=== PATIENT | male | born 1955 | race Caucasian/White ===

== ENCOUNTER 2024-01-10 09:33 | Outpatient (CLI) | payer BC, SELFPAY ==
--- NOTE | 2024-01-10 09:47 | ECG_ITS ---
Test Date: 2024-01-10 10:14:47 Measurements Intervals [place] Rate: 57 P: 41 PA: 150 QRS: 50 QRSD: 106 T: 67 QT: 400 QTc: 392 Interpretive Statements SINUS BRADYCARDIA PEAKED T WAVES- CONSIDER HYPERKALEMIA BASELINE ARTIFACT- I, II, III, AVR, AVL, AVF ABNORMAL ECG No previous ECG available for comparison Electronically Signed On 01-10-2024 10:52:41 ASSISTANT BUSINESS MANAGER by Kurt Nguyễn D.O.
[2024-01-10 10:22] LABS: Hemoglobin 13.7 g/dL (14.0-18.0); Mean Corpuscular HGB Conc 33.4 g/dl (32-36); Mean Corpuscular Hemoglobin 30.6 pg (26-34); Mean Corpuscular Volume 91.7 fl (80-100); Platelet Count Result 210 k/mm3 (150-375); Red Blood Count 4.47 M/mm3 (4.6-6.20); Red Cell Distribution Width 12.5 % (11.5-14.5); White Blood Count 5.4 K/mm3 (4.5-10.0)
[2024-01-10 10:24] LABS: Add Urine Microscopic? NO; Appearance Urine Clear (Clear); Bilirubin Urine Negative (Negative); Blood Urine Negative (Negative); Color Urine Yellow (Yellow); Glucose Urine UA Negative (Negative); Ketones Urine Negative (Negative); Leukocyte Esterase Ur Negative LEU/UL (Negative); Nitrate Urine Negative (Negative); Protein Urine Negative (Negative); Specific Grav Ur 1.009 (1.001-1.035); Urobilinogen Urine 0.2 mg/dL (<2.0); pH Urine 7.5 (5.0-9.0)
[2024-01-10 10:33] LABS: Prothrombin Time 13.6 Seconds (11.1-14.7)
[2024-01-10 10:34] LABS: Partial Thromboplastin Time 27.5 Seconds (22.3-36.8)
[2024-01-10 10:40] LABS: Anion Gap 6 mmol/L (4-12); Blood Urea Nitrogen 20 mg/dL (9-20); Calcium 9.1 mg/dL (8.4-10.2); Carbon Dioxide 29 mmol/L (22-30); Chloride 104 mmol/L (98-107); Estimated Glomerular Filt Rate > 60; Glucose 94 mg/dL (65-110); Potassium 4.4 mmol/L (3.4-5.0); Sodium 139 mmol/L (137-145)
== END 2024-01-10 09:34 | disposition home or self-care (01) ==
PROVIDERS: Visit Provider Neurological Surgery
DX: Z01.818 Encounter for other preprocedural examination (principal); M48.02 Spinal stenosis, cervical region; R94.31 Abnormal electrocardiogram [ECG] [EKG]
CPT/HCPCS: 36415; 80048; 81003; 85027; 85610; 85730; 86850; 86900; 86901; 93005

== ENCOUNTER 2024-01-16 00:31 | Day surgery (SDC) | payer BC, SELFPAY ==
--- NOTE | 2024-01-05 11:07 | PC.NURSE ---
Report to the Outpatient Waiting Room, entrance under the green pavilion located off [facility], at time 6:30 AM on date01/16/24 . Planned Procedure Time: _8:30 AM .? Time changes happen often and if your time is changed the preop area will call you the afternoon before. - You and your visitor will be asked to self-screen and do not enter if you have any COVID symptoms. Please call surgeon if you need to reschedule. - A mask is optional within the hospital at this time. Patients may have clear liquids (water, carbonated beverages, clear teas, apple juice) until 3 hours prior to surgery( 5:30 AM) with a maximum of 20 ounces. - No food from midnight until time of surgery and no smoking - Infants may have breast milk until 4 hours before surgery, formula 6 hours prior to surgery. - Children will be allowed to drink immediately following surgery.? If applicable, please bring a bottle or sippy cup to assist with drinking. Juice, water, soda, and popsicles are readily available.? For infants on formula, please bring formula the day of surgery.? Pacifiers are allowed. Take only the following medications with a SIP of water on the morning of surgery: ____NONE DO NOT STOP ANY OF YOUR OTHER PRESCRIPTION MEDICATIONS PRIOR TO SURGERY EXCEPT THE FOLLOWING Medications to discontinue per physician NONE Please no make-up, nail wolof, hairspray, perfume, deodorant, or body powder the day of surgery.? No jewelry (including any body piercings) or valuables the day of surgery, leave them at home.? Please take a shower or bath the night before, or the morning of, surgery with an antibacterial soap.? Wear comfortable, loose fitting clothing.? Children are encouraged to wear pajamas. - Jewelry must be removed prior to entering the operating room.? Rings and piercings that are not removed may be cut off. - The hospital will not accept responsibility for valuables.? - Please leave all valuables, including medications, at home the day of surgery. If you are going home after surgery, a licensed fork truck driver must drive you home.? - NO public transportation without another adult if you receive anesthesia. - We recommend that an adult stay with you for 24 hours following discharge. - We also recommend that you do not drive, make important decision, drink alcoholic beverages, or take any drugs that were not prescribed by your health care provider for at least 24 hours after your discharge time. Follow any additional instructions given to you from your surgeon. Telephone instructions given to _PATIENT and asked if any additional questions and then verbalized understanding. Patient advised to call surgeon office or pre surgery nurse liaison [phone] if any additional questions.
[2024-01-05 11:19] VITALS: BMI 19.3
[2024-01-16] VITALS (15 sets, daily range): BP systolic 109–144; BP diastolic 51–84; PULSE 56–90; RESP 16–20; TEMP 36–37.3; O2SAT 95–100
--- NOTE | ~2024-01-16 | XR_ITS ---
EXAMINATION: XR fluoroscopy no charge DATE: 01/16/2024 10:27 INDICATION: C4 C6 laminectomy and lateral mass fusion TECHNIQUE: 2 fluoroscopic images of the cervical spine were obtained during procedure performed by Dr Jackie Mercado. Radiologist was not present for the imaging or procedure. The amount of fluoroscopy time used during this procedure was 0.1 minutes. COMPARISON: None. FINDINGS: The lateral images of the cervical spine demonstrate severe spondylosis at C3-C6. Surgical instrument ation projects in partial obscures the posterior elements of C4-C5. Final image demonstrates placemen t of lateral mass screws at C4, C5 and C6. IMPRESSION: 1. Fluoroscopy utilized during neurosurgical procedure at the lower cervical spine. See procedure not e for further detail. Reviewed, dictated and finalized at location B. NER IMPRESSION: 1. Fluoroscopy utilized during neurosurgical procedure at the lower cervical sp ine. See procedure note for further detail.
[2024-01-16] MEDS: LACTATED RINGERS 1,000 ML 30 ML IV CONT ×2 (07:05→10:46)
--- NOTE | 2024-01-16 07:51 | P.HP_ITS ---
H&P: HPI History of Present Illness Date/Time: 01/16/24 07:51 Chief Complaint: Cervical myelopathy Narrative: Martin 68-year-old gentleman who has a fairly physical job and notices increased pain in his neck. He is a milk truck driver. Since November of last year, or so, he has had pain that radiates from his neck down his left upper extremity to the 1st and 2nd digit mainly but also the 3rd and 4th digit at the tips. He notices the numbness and tingling there as well as discomfort. He notices difficulty using the hand because of these issues. He does not note any of these issues on the right. He does not notice any difficulty with his balance. He has been walking without difficulty. He does have some low back and right knee issues. He does not note specific muscle group weakness but does have dermatomal numbness as described above. Again, activity seems to make things worse and rest seems to improve his problems. He has participated in health care analyst and physical therapy without permanent benefit. Review of Systems Review of Systems: All systems reviewed & are unremarkable except as noted in HPI and below Denies chills, Denies fever, Denies weight gain and Denies weight loss Eyes Denies change in vision and Denies diplopia ENT Denies disequilibrium Card Denies chest pain and Denies dyspnea Resp Denies cough and Denies dyspnea GI Denies abdominal pain, Denies change in bowel habits, Denies fecal incontinence and Denies vomiting Denies hematuria, Denies oliguria, Denies difficulty urinating, Denies dysuria, Denies urinary frequency, Denies urinary hesitancy, Denies urinary incontinence and Denies urinary urgency Musc Reports as per HPI Skin/ Breast Reports system reviewed and no additional complaints, except as documented Neuro Reports as per HPIPsych Reports no additional complaints, Denies depression and Denies hopelessness Endo Reports no additional complaints and Denies polyuria Mulugeta/ Lymph Reports no additional complaints Aller/ Immun Reports no additional complaints PMFSH Surgical History Surgical History (Updated 11/14/23 @ 10:32 by Lilly Shannon CMA) History of fusion of talotibial joint and subtalar joint Family History Family History (Updated 11/14/23 @ 10:34 by Lilly Shannon CMA) Mother History of cancer Father History of cancer Sibling History of cancer Social History Social History (Updated 11/14/23 @ 10:42 by Lilly Shannon GENERAL MANAGER ROAD [employer]ODUCTION) Smoking packs per day: 2 Smoking cigarettes per day: 40.0 Years smoked: 20 Smoking pack-years: 40.00 Smoking status: Former smoker Tobacco type: cigarettes Smoking end date: 03/06/08 Alcohol intake: former Substance use: never Substance use type: does not use Living arrangements: with family Spiritual care concerns: No Meds Home Medications and Allergies Home Medications Medication Instructions Recorded Confirmed Type No Home Medications 11/14/23 01/05/24 History Allergies Allergy/AdvReac Type Severity Reaction Status Date / Time No Known Allergies Allergy Verified 01/16/24 06:39 Vital Signs Vital Signs - 24 hr 01/16/24 07:22 Temperature 97.0 F L Pulse Rate 65 Respiratory Rate 16 Blood Pressure 126/51 L Pulse Oximetry 100 Oxygen Delivery Room Air Exam Narrative: General: cooperative, no acute distress, well developed, alert and awake Orientation/Consciousness: oriented to person, oriented to place and oriented to time Constitutional Limitations: no limitations Other: The patient is a normally developed, normal appearing male sitting on the examination table in no acute distress. He is awake, alert, and oriented x3 with good fund of knowledge, recall of events, and fluent speech. HENIN Head: normocephalic and atraumatic Ears: external ears normal Face/Nose/Sinus: Normal external nose present Eyes Eyelids: eyelids normal Pupils: Yes Pupils normal by confrontation EOM: EOMs intact bilaterally Neck General: Yes no meningeal signs, Yes supple and Yes no JVD Resp Effort/Inspection: normal respiratory effort and able to speak in complete sentences Cardio Rate: Yes regular rate GI Inspection: No abdominal distension Musc Other: Examination of the Neck reveals mild paraspinal tenderness left greater than right. Range of motion of the neck is limited in forward flexion, extension, and lateral rotation mainly to the left. Skin General: normal color Neuro General: Yes oriented to person, Yes oriented to place, Yes oriented to time, Yes normal cognition and Yes no meningeal signs Cranial Nerves: Yes CN's II-XII intact bilaterally Other: Motor: Strength is normal, 5/5, throughout all muscle groups of the bilateral upper extremities to direct confrontation. Sensory: Sensation is intact to light touch throughout the upper extremities bilaterally. Reflexes: Deep tendon reflexes 2+ at the biceps, triceps, and brachioradialis bilaterally. there is no clonus. Gomez's sign is negative bilaterally. Gait: Gait, station, and transfers are independent and steady for short periods of time and over short distances. Psych Appearance: grossly normal Mental status: Yes mental status grossly normal Mood: congruent mood Affect: Yes normal affect Speech/Movement: Normal speech and movement present Attitude: Yes cooperative Thought Content: Normal thought content present Review of studies: MRI of the cervical spine was personally reviewed by me. This demonstrates straightening and reversal of the cervical lordosis at C3-6. At C4-5 and C5-6 there is severe central canal stenosis and foraminal stenosis bilaterally. There is degeneration of the disc at C3-4, C4-5 and C5-6. There is spondylosis throughout especially at the levels described above. Assessment and Plan Assessment and plan (1) Foraminal stenosis of cervical region: Code(s): M48.02 - Spinal stenosis, cervical region Status: Acute (2) Cervical stenosis of spinal canal: Code(s): M48.02 - Spinal stenosis, cervical region Status: Acute Plan Tony is a 68-year-old gentleman with neck and left upper extremity discomfort that is likely a C6 radiculopathy related to the foraminal stenosis at C5-6. However there is severe central canal stenosis at C4-5 and C5-6 and severe foraminal stenosis at those levels as well as well as a kyphotic deformity. I therefore recommend posterior decompression by way of C4-6 laminectomy and lateral mass instrumented fusion and described to him that operation, its risks, potential benefits, the operative and postoperative course in detail and answered all his questions personally. We discussed risks including but not limited to permanent neurologic deficit secondary to injury of the spinal cord or nerve roots, need for reoperation secondary to infection, bleeding, CSF leak, adjacent level disease, malposition or migration of the hardware or nonunion,recurrent or residual pathology or instability, failure of the procedure to relieve his pain or symptoms, persistent pain, medical complications related anesthesia or surgery, etc.. Indicates understanding and elects to proceed with that operation.
--- NOTE | 2024-01-16 07:55 | WPDHPUPDATE1 ---
History and Physical Update Update Date/Time: 01/16/24 07:55 History and Physical has been reviewed, including an updated exam of the patient. There are NO changes in the patient's condition. Risks, benefits, and alternatives have been discussed and questions answered. Patient agrees to proceed with procedure.
--- NOTE | 2024-01-16 08:24 | P.PNAN_ITS ---
Anes - Initial Pre Proc Eval Procedure: Operation Date: 01/16/24 08:30 Proposed Procedures p C4-6 Laminectomy Lateral Mass Instrumental Fusion - Sreekanth Mercado MD Date/Time: 01/16/24 08:24 Surgeon: Sreekanth Mercado MD Pre Op Diagnosis: C4-5 Stenosis, Foraminal Stenosis Patient Data Age: 68 Gender: M Height: 1.78 m Weight: 63.4 kg Last Vital Signs Temp 97.0 F L 01/16/24 07:22 Pulse 65 01/16/24 07:22 Resp 16 01/16/24 07:22 BP 126/51 L 01/16/24 07:22 Pulse Ox 100 01/16/24 07:22 O2 Del Method Room Air 01/16/24 07:22 Allergies Allergy/AdvReac Type Severity Reaction Status Date / Time No Known Allergies Allergy Verified 01/16/24 06:39 Home Medications Medication Instructions Recorded Confirmed Type No Home Medications 11/14/23 01/05/24 History Patient hx anesthesia problems: none Family hx anesthesia problems: none Results Review: All pre-operative results and documents have been reviewed as part of the pre- operative evaluation. [facility] Surgical History Surgical History (Updated 11/14/23 @ 10:32 by Lilly Shannon CMA) History of fusion of talotibial joint and subtalar joint Family History Family History (Updated 11/14/23 @ 10:34 by Lilly Shannon CMA) Mother History of cancer Father History of cancer Sibling History of cancer Social History Social History (Updated 11/14/23 @ 10:42 by Lilly Shannon CMA) Smoking packs per day: 2 Smoking cigarettes per day: 40.0 Years smoked: 20 Smoking pack-years: 40.00 Smoking status: Former smoker Tobacco type: cigarettes Smoking end date: 03/06/08 Alcohol intake: former Substance use: never Substance use type: does not use Living arrangements: with family Spiritual care concerns: No Anes - Eval Final PreProcedure Day of Procedure 01/16/24 08:24 Patient weight: normal Heart: regular rate and rhythm Lungs: clear to auscultation Airway: Mallampati scale class II Neurological: alert and oriented Last oral intake: >/= 8 hours ASA classification: III Emergent: no Anesthetic plan: proceed Anesthesia type and monitoring: general ETT and standard monitoring Results Review: All pre-operative results and documents have been reviewed as part of the pre- operative evaluation. Informed Consent: The patient's anesthetic plan and its attendant risks and benefits were discussed with the patient/family/POA. Questions were solicited and answers provided to the satisfaction of the patient/family/POA.
[2024-01-16] MEDS: ceFAZolin 2 GM/D5W 50 ML 2 GM/50 ML BAG IVPB (08:35)
[2024-01-16] MEDS: LIDO 1%/EPINEPHRINE 1:100,000 50 ML VIAL 10 ML INFILTRATE (09:24)
[2024-01-16] MEDS: LACTATED RINGERS 1,000 ML 125 ML IV CONT (10:46)
--- NOTE | 2024-01-16 10:51 | P.OP_ITS ---
Procedure Note - Detailed Date of Procedure 01/16/24 Pre-op Diagnosis C4-5 Stenosis, Foraminal Stenosis Post-op Diagnosis Same Procedure Performed C4-6 laminectomy and lateral mass instrumented fusion Surgeon Sreekanth Mercado MD Anesthesia General Description of Procedure patient was brought to the operating room in the supine position, was sedated, intubated placed under general anesthesia in routine fashion. He was then turned into the prone position on gel rolls with his head in a Murphy head hol oleg that had been applied and was now attached to the bed frame. The area of operation on the back of his neck was examined, marked for incision, prepped and draped in routine sterile fashion. Incision was marked over the C4 through 6 spinous processes in the midline. This area was injected with 0.5% lidocaine with [id number] epinephrine. Intravenous antibiotics given prior to incision. Incision was made with a 10 blade scalpel down to the cervical fascia. A subperiosteal dissection of the muscle soft tissue away from spinous process and lamina at C4-6 was performed with a subperiosteal elevator and Bovie cautery. A verifying x-rays obtained to verify the level of operation. At C4-6 Midas-Dusty drill was used to cut a transient the lamina until the soft contents of the canal were encountered. The spinous processes and lamina were then lifted in the interspinous ligament above and below cut with the Leksell rongeur. The spinous processes and lamina were passed off the field, stripped free of soft tissue and morselized for later use as interbody autograft. Kerrison punches and curved curettes were used to define a plane with the dura and removed additional bone and ligament in the lateral recess completing laminectomy. At C4-6 of lateral mass instrumentation was placed by creating a hole in the facet near the mid point and then using a drill with a drill guide set to 14 mm to create a hole 20? cephalad 20? lateral into each facet from C4-C6. All these holes were tapped with a 3.5 mm tap an a 14 x 4 mm screw was placed into each lateral mass. Rods were placed into the screw heads on either side and secured position using the caps for that purpose. These were definitively torqued with the torque and anti torque device. A verifying x-rays obtained to verify good position of the instrumentation which was confirmed. The wound was copiously irrigated with bacitracin irrigation all bleeding stopped with bipolar cautery. The lateral masses were decorticated using a Midas Dusty drill. The morselized bone was packed against these decorticated surfaces and into the facet joints which were also decorticated. A medium Hemovac drain was left in the subfascial position buried out to the inferior right of the incision. The wound was then closed in layered fashion with 2-0 Vicryl interrupted sutures in the cervical fascia and Kristopher's layer. 3-0 Vicryl buried interrupted sutures were placed in the dermis and skin was closed with a running 4-0 Monocryl subcuticular stitch and dressed with Dermabond. Patient was turned into the supine position on hospital bed and relieved of the Murphy heading machine operator.The patient was allowed to wake up in the operating room and was taken to the recovery room in stable condition. There were no immediate complications of this operation. All counts reported correct at the end the case. Blood loss was 100 cc. The patient was neurologically at his baseline postoperatively. Implants Titanium screws and rods Estimated Blood Loss 100 Drains Yes Complications None Condition Stable Disposition PACU [facility] Billing Surgery - Charge Forward: Surgery Billing
[2024-01-16] MEDS: fentaNYL CITRATE INJ (*CRX) 100 MCG/2 ML VIAL 25 MCG IV PUSH ×7 (11:15→12:20)
[2024-01-16] MEDS: KCL 20 MEQ/D5/0.45% SOD CHL 1,000 ML 100 ML IV CONT (13:18)
--- NOTE | 2024-01-16 13:28 | ADMGEN ---
This patient, Nilo Mccloud, was admitted to [facility] Surg Room 311-01 at 1245. Patient/family oriented to hospital policies and general routines including ID bracelet, bed and alarms, visiting hours, pain management, procedures, bathroom and other care routines, personal items, smoking policy, room service/diet, and visiting hours. Information on how to activate the Rapid Response Team has been discussed. Patient/Family are encouraged to report perceived risks to care and to ask questions if they do not understand what they are told or what they should do.
[2024-01-16] MEDS: HYDROcodone/acetaminophen (*CRX) 10-325 MG TABLET 1 TAB PO ×3 (13:37→21:58)
[2024-01-16] MEDS: ceFAZolin 1 GM/NS 50 ML 1 GM/50 ML BAG IVPB ×2 (16:45→23:11)
[2024-01-16] MEDS: DOCUSATE SODIUM 100 MG CAPSULE PO (20:57)
[2024-01-16] MEDS: CYCLOBENZAPRINE HCL 10 MG TABLET PO (23:35)
[2024-01-17 03:42] VITALS: BP 107/60; PULSE 74; RESP 16; TEMP 37.1; O2SAT 99
[2024-01-17] MEDS: HYDROcodone/acetaminophen (*CRX) 5-325 MG TABLET 1 TAB PO (06:33)
[2024-01-17 07:42] VITALS: BP 101/60; PULSE 70; RESP 18; TEMP 37; O2SAT 99
[2024-01-17] MEDS: ceFAZolin 1 GM/NS 50 ML 1 GM/50 ML BAG IVPB (09:02)
[2024-01-17] MEDS: DOCUSATE SODIUM 100 MG CAPSULE PO (09:03)
[2024-01-17] MEDS: CYCLOBENZAPRINE HCL 10 MG TABLET PO (09:04)
[2024-01-17 11:42] VITALS: BP 110/54; PULSE 83; RESP 18; TEMP 36.9; O2SAT 98
[2024-01-17 15:42] VITALS: BP 121/68; PULSE 80; RESP 18; TEMP 37.4; O2SAT 99
--- NOTE | 2024-01-17 16:38 | WPDNEUROSGPN ---
Progress Note: A&P Assessment and Plan (1) Status post cervical arthrodesis: Code(s): Z98.1 - Arthrodesis status Status: Acute Plan -Discharge home today -Follow up with Dr. Mercado as scheduled Subjective Date/time seen: 01/17/24 16:38 Interval history: Doing well with reasonable pain control. Ambulating and voiding independently. He is tolerating oral intake. He would like to go home today Review of Systems Review of Systems: All systems reviewed & are unremarkable except as noted in HPI and below Exam Narrative: AOx4 Moving all extremities well Incision c/d/i Objective Data Vital Signs Vital Signs: Vital Signs - 24 hr 01/16/24 19:42 01/16/24 23:42 01/16/24 20:00 Temperature 98.4 F 99.1 F Pulse Rate 76 66 Respiratory Rate 20 20 Blood Pressure 120/66 109/64 Pulse Oximetry 98 98 Oxygen Delivery Room Air 01/17/24 03:42 01/17/24 07:42 01/17/24 08:00 Temperature 98.8 F 98.6 F Pulse Rate 74 70 Respiratory Rate 16 18 Blood Pressure 107/60 101/60 Pulse Oximetry 99 99 Oxygen Delivery Room Air 01/17/24 11:42 01/17/24 15:42 Temperature 98.5 F 99.4 F Pulse Rate 83 80 Respiratory Rate 18 18 Blood Pressure 110/54 L 121/68 Pulse Oximetry 98 99 Oxygen Delivery Intake/Output Intake/Output: Intake & Output 01/14/24 01/15/24 01/16/24 01/17/24 23:59 23:59 23:59 23:59 Intake Total 1540 730 Output Total 85 Balance 1455 730 Meds/Results Medications: Active Medications Generic Name Dose Route Start Last Admin Trade Name Freq PRN Reason Stop Dose Admin Hydrocodone Bitart/Acetaminophen 1 tab 01/16/24 12:42 01/16/24 21:58 Hydrocodone/Acetaminophen (*Crx) 10-325 Mg Tablet PO 1 tab Q4H PRN Administration Moderate Pain (4-6) Hydrocodone Bitart/Acetaminophen 1 tab 01/16/24 12:42 01/17/24 06:33 Hydrocodone/Acetaminophen (*Crx) 5-325 Mg Tablet PO 1 tab Q4H PRN Administration Mild Pain (1-3) Al Hydrox/Mg Hydrox/Simethicone 20 ml 11/12/24 12:42 Mag Hydrox/Al Hydrox/Simeth 30 Ml Udc PO Q4H PRN Indigestion/Heartburn Bisacodyl 10 mg 01/16/24 12:42 Bisacodyl 10 Mg Suppository RECTAL DAILY PRN Constipation Cyclobenzaprine HCl 10 mg 01/16/24 12:42 01/17/24 09:04 Cyclobenzaprine Hcl 10 Mg Tablet PO 10 mg TID PRN Administration Muscle Spasms Docusate Sodium 100 mg 01/16/24 21:00 01/17/24 09:03 Docusate Sodium 100 Mg Capsule PO 100 mg Q12HR SAWYER Administration Cefazolin Sodium 1 gm in 50 mls @ 100 mls/hr 01/16/24 16:00 01/17/24 09:02 Ancef 1 Gm/Ns 50 Ml IVPB 100 mls/hr Q8H SAWYER Administration Morphine Sulfate 2 mg 01/16/24 12:42 Morphine Sulfate (*Crx) 2 Mg/Ml Inj IV PUSH Q2H PRN Pain Rated 7-10 Ondansetron HCl 4 mg 01/16/24 12:42 Ondansetron Inj 4 Mg/2 Ml Vial IV PUSH Q8H PRN Nausea And Vomiting Senna/Docusate Sodium 1 tab 01/16/24 12:42 Senna/Docusate Sodium Tablet PO HS PRN Constipation Radiology Results: ITS Impressions Fluoroscopy 01/16/24 10:40 IMPRESSION: 1. Fluoroscopy utilized during neurosurgical procedure at the lower cervical spine. See procedure note for further detail.
== END 2024-01-17 16:51 | disposition home or self-care (01) ==
LOC: ANHSURGERY 06:20 → ANH3MEDSUR 12:43
PROVIDERS: Visit Provider Neurological Surgery
PROC: (CPT 22600; principal; 2024-01-16 08:30)
DX: M48.02 Spinal stenosis, cervical region (principal); Z87.891 Personal history of nicotine dependence
CPT/HCPCS: 22600; 22614; 63045; 63048; 22842; 20936; 97116; 97161; 97165; 97535; 99199; A9270; C1713; J0690; J1100; J2003; J2004; J2250; J2405; J2704; J3010; J3480; J7120

== ENCOUNTER 2024-02-20 09:22 | Outpatient (CLI) | payer BC, SELFPAY ==
--- NOTE | ~2024-02-20 | XR_ITS ---
XR_[id number]_CR Ordering provider: Sreekanth Mercado MD History: . Z98.1 - Arthrodesis status, F/U SURGERY 5 WEEKS AGO . Comparison: None. FINDINGS: VERTEBRAL BODIES: Normal height and alignment. No visible fracture or subluxation. The dens is intact . Postoperative changes at the level of C4, C5 and C6.. Kyphosis centered at the level of C3-C4. DISK SPACES: Narrowing of the disc C3-C4, C4-C5 and C5 and C5-C6. Multilevel uncovertebral joint oste oarthritic changes. PARASPINOUS SOFT TISSUES: No prevertebral soft tissue swelling. IMPRESSION: No acute osseous abnormality cervical spine. Multilevel degenerative disc disease. Reviewed, dictated and finalized at location A. ENTICE CARPENTER
== END 2024-02-20 09:23 | disposition home or self-care (01) ==
PROVIDERS: Visit Provider Neurological Surgery
DX: M50.31 Other cervical disc degeneration, high cervical region (principal); M50.321 Other cervical disc degeneration at C4-C5 level; M50.322 Other cervical disc degeneration at C5-C6 level; Z98.1 Arthrodesis status
CPT/HCPCS: 72040

== ENCOUNTER 2024-04-29 09:04 | Outpatient (CLI) | payer BC, SELFPAY ==
--- NOTE | ~2024-04-29 | XR_ITS ---
EXAMINATION: XR_CERV2-3V_CR DATE: 04/29/2024 09:27 INDICATION: Arthrodesis status. TECHNIQUE: 4 views of cervical spine were obtained. COMPARISON: Cervical spine radiographs 02/20/2024 FINDINGS: There is 4 degrees dextrocurvature of cervical spine. There is 2 mm retrolisthesis of C4 on C5 and C5 on C6. Vertebral body heights are normal. There is severely decreased disc height from C3- C4 through C5-C6. There are changes of posterior fusion procedure from C4 to C6 with lateral mass scr ews. There are laminectomies from C4 to C6. There is multilevel facet joint osteoarthritis, severe on the right at C2-C3. There is mild central canal stenosis at C3-C4. No prevertebral soft tissue swell ing. IMPRESSION: 1. Severe cervical spondylosis. 2. Posterior fusion procedure from C4 to C6. Reviewed, dictated and finalized at location A. ICAL RESEARCH WORKER
== END 2024-04-29 09:05 | disposition home or self-care (01) ==
PROVIDERS: Visit Provider Nurse Practitioner Adult Health
DX: M47.812 Spondylosis without myelopathy or radiculopathy, cervical region (principal); Z98.1 Arthrodesis status
CPT/HCPCS: 72040

== ENCOUNTER 2024-05-01 09:53 | Outpatient (CLI) | payer BC, SELFPAY ==
--- NOTE | ~2024-05-01 | XR_ITS ---
EXAMINATION: XR lumbar spine min 4V DATE: 05/01/2024 10:15 INDICATION: Low back pain. TECHNIQUE: 5 views of lumbar spine including standing views and flexion and extension views were obta ined. COMPARISON: None. FINDINGS: There is 4 degrees dextrocurvature lumbar spine. Vertebral body heights are normal. There i s moderately decreased disc height at L4-L5 and L5-S1. There is multilevel facet joint osteoarthritis , severe at multiple levels. There is no abnormal motion on flexion or extension. IMPRESSION: 1. Moderate lumbar spondylosis. Reviewed, dictated and finalized at location A. TTING MANAGER
== END 2024-05-01 09:54 | disposition home or self-care (01) ==
PROVIDERS: Visit Provider Nurse Practitioner Adult Health
DX: M47.816 Spondylosis without myelopathy or radiculopathy, lumbar region (principal)
CPT/HCPCS: 72110